=== PATIENT | female | born 1975 | race Caucasian/White ===

== ENCOUNTER 2017-06-22 17:55 | Observation (INO) | payer OTHER ==
[~2017-06-22] VITALS: Ht 175.3 cm; Wt 77.3 kg
[2017-06-22 18:40] VITALS: BP 112/74; PULSE 140; RESP 16; TEMP 98; O2SAT 98
[2017-06-22 18:41] VITALS: BP 102/70; PULSE 107; RESP 16; O2SAT 99
--- NOTE | 2017-06-22 19:42 | RADRPT ---
EXAM DATE/TIME: 06/22/2017 19:20 [facility] COMPARISON: No previous studies available for comparison. INDICATIONS : Trauma, fell from standing position and hit head on ground. RADIATION DOSE: 34.43 CTDIvol (mGy) MEDICAL HISTORY : None SURGICAL HISTORY : None. ENCOUNTER: Initial ACUITY: 1 day PAIN SCALE: 6/10 LOCATION: cranial TECHNIQUE: Multiple contiguous axial images were obtained of the head. Using automated exposure control and adj ustment of the mA and/or kV according to patient size, radiation dose was kept as low as reasonably a chievable to obtain optimal diagnostic quality images. DICOM format image data is available electro nically for review and comparison. FINDINGS: There is moderate central and cortical atrophy with dilatation of ventricular and sulcal spaces which is advanced for age. There is no parenchymal hemorrhage, acute infarction or mass lesion identified . There are no extra-axial fluid collections appreciated. The posterior fossa is unremarkable with midline fourth ventricle. The portion of the orbits and paranasal sinuses visualized are unremarkabl e. CONCLUSION: Generalized atrophy advanced for age. No evidence of acute infarct, hemorrhage, mass or edema. Jeramie Spring MD on June 22, 2017 at 19:38 Board Certified Radiologist. This report was verified electronically.
--- NOTE | 2017-06-22 19:47 | PD ---
HPI Chief Complaint: Alcohol/Drug Intoxication Time Seen by Provider: 19:20 Travel History International Travel<30 days: No Contact w/Intl Traveler<30days: No Traveled to known affect area: No History of Present Illness HPI 41 year female brought in by EMS after she had a witness fall from a standing position landing on the ground injurying her face. She denies LOC. She reports [place] She denies any drug use. She denies dizziness, chest pain, or shortness of breath prior to the fall. She reports she had too much to drink causing her to fall. She has pain in her front teeth and neck. She denies headache, facial bone pain, chest pain, shortness breath, abdominal pain. [facility] Past Medical History Tetanus Vaccination: Unknown ?: Not Past Surgical History Surgical History: Unable to Obtain Social History Alcohol Use: Yes Tobacco Use: No Substance Use: No Allergies-Medications (Allergen,Severity, Reaction): Coded Allergies: amoxicillin (Verified Allergy, Unknown, 06/22/17) azithromycin (Verified Allergy, Unknown, 06/22/17) clavulanic acid (Verified Allergy, Unknown, 06/22/17) gabapentin (Verified Allergy, Unknown, 06/22/17) Reported Meds & Prescriptions Reported Meds & Active Scripts Active Active Prescriptions or Reported Medications Unobtainable Review of Systems Except as stated in HPI: all other systems reviewed are Neg Physical Exam Narrative GENERAL: Alert female who appears intoxicated with slurred speech and smells of alcohol SKIN: Focused skin assessment warm/dry. Abrasions to the face. HEAD: No scalp hematomas. Normocephalic. Abrasions to the face without bony tenderness of the facial bones. EYES: Pupils equal and round. No scleral icterus. No injection or drainage. ENT: No nasal bleeding or discharge. Mucous membranes pink and moist. MOUTH: Mucous membranes moist, no lesions, tongue and gums appear normal. Tooth #8 and 9 chipped. NECK: Trachea midline. No JVD. cervical midline tenderness CARDIOVASCULAR: Regular rate and rhythm. No murmur appreciated. RESPIRATORY: No accessory muscle use. Clear to auscultation. Breath sounds equal bilaterally. GASTROINTESTINAL: Abdomen soft, non-tender, nondistended. Hepatic and splenic margins not palpable. MUSCULOSKELETAL: No obvious deformities. No clubbing. No cyanosis. No edema. Left lower extremity: TTP over the patella. Limited flexion due to pain. 2+ distal pulses. Normal sensation. NEUROLOGICAL: Awake and alert. No obvious cranial nerve deficits. Motor grossly within normal limits. Normal speech. PSYCHIATRIC: Appropriate mood and affect; insight and judgment normal. Data Data Last Documented VS Vital Signs Date Time Temp Pulse Resp B/P (MAP) Pulse Ox O2 Delivery O2 Flow Rate FiO2 06/22/17 18:41 107 16 102/70 (81) 99 06/22/17 18:40 98.0 Room Air Orders Orders Ct Cerv Spine W/O Contrast (06/22/17 ) Ct Brain W/O Iv Contrast(Rout) (06/22/17 ) Knee, Ltd (1 Or 2vws) (06/22/17 ) Basic Metabolic Panel (Bmp) (06/22/17 20:42) Complete Blood Count With Diff (06/22/17 20:42) Iv Access Insert/Monitor (06/22/17 20:42) Sodium Chloride 0.9% Flush (Ns Flush) (06/22/17 20:45) Ketorolac Inj (Toradol Inj) (06/22/17 20:45) ^ Knee Immobilizer (06/22/17 20:42) Alcohol (Ethanol) (06/22/17 20:42) MDM Medical Decision Making Medical Screen Exam Complete: Yes Emergency Medical Condition: Yes Interpretation(s) X-ray of the left knee: Patella fracture CT of the brain: Generalized atrophy advanced for age.No evidence of acute infarct, hemorrhage, mass or edema. CT cervical: Negative for fracture Differential Diagnosis cervical strain vs cervical spine fx vs ICH vs minor closed head injury versus knee contusion versus fracture Narrative Course 41 year old women here for evaluation after she fell from a standing position landing on the ground injuring her face [place] The fall was witnessed there was no LOC. Patient reports pain in her front teeth. On exam patient has abrasions to her face and tooth #8 and 9 are chipped. Her facial Injuries are minor. She has no bony facial tenderness. She open and closes her mouth freely. Left knee moderate swelling to keep heat to the anterior aspect. She appears intoxicated with slurred speech and smells of alcohol. CT of the brain: No acute abnormality CT of cervical spine: No fracture X-ray of the left knee: Patella fracture This will be placed in observation until she is clinically sober, pain control is achieved, and patient can ambulate Physician Communication Physician Communication 2100 spoke to executive compensation analyst orthopaedic Dr. Hernandez regarding patient's left patella fracture he recommends if the patient is able to straighten the leg to immobilize it and have her follow-up in office. [id number] Clayton who agrees to admit patient for 23 hour OBS Diagnosis Primary Impression: Chipped tooth Qualified Codes: S02.5XXA - Fracture of tooth (traumatic), initial encounter for closed fracture Additional Impressions: Alcohol intoxication Qualified Codes: F10.920 - Alcohol use, unspecified with intoxication, uncomplicated Patella fracture Qualified Codes: S82.035A - Nondisplaced transverse fracture of left patella, initial encounter for closed fracture Admitting Information Admitting Physician Requests: Observation Referrals: Jay Hernandez Jr., MD Dentist Scripts Unable to Obtain Active Prescriptions or Reported Meds Milena Laurent Jun 22, 2017 19:47
--- NOTE | 2017-06-22 19:51 | RADRPT ---
EXAM DATE/TIME: 06/22/2017 19:20 [facility] COMPARISON: No previous studies available for comparison. INDICATIONS : Trauma, fell from standing position and hit head on ground. RADIATION DOSE: 21.96 CTDIvol (mGy) MEDICAL HISTORY : None SURGICAL HISTORY : None. ENCOUNTER: Initial ACUITY: 1 day PAIN SCALE: 2/10 LOCATION: neck TECHNIQUE: Volumetric scanning of the cervical spine was performed. Multiplanar reconstructions in the sagittal, coronal and oblique axial planes were performed. Using automated exposure control and adjustment o f the mA and/or kV according to patient size, radiation dose was kept as low as reasonably achievable to obtain optimal diagnostic quality images. DICOM format image data is available electronically f or review and comparison. FINDINGS: Cranial cervical and cervical vertebral body alignment are well maintained. Vertebral bodies and posterior elements are intact. There is no evidence of listhesis or fracture. Mild to moderate degenerative disc disease is noted. There is disc space narrowing with mild spondylo sis at C4-5, C5-6 and C6-7. There are no focal soft tissue abnormalities. CONCLUSION: 1. Mild/moderate degenerative disc disease at C4-5, C5-6 and C6-7. 2. Intact cervical spine without evidence of acute fracture or traumatic listhesis. Jeramie Spring MD on June 22, 2017 at 19:47 Board Certified Radiologist. This report was verified electronically.
[2017-06-22] MEDS ORDERED: SODIUM CHLORIDE 0.9% FLUSH 10 ML FLUSH IV FLUSH PRN ×2 (20:45→21:15)
[2017-06-22] MEDS ORDERED: KETOROLAC TROMETHAMINE 30 MG/ML (IVP) VIAL IVP ONE (20:45)
[2017-06-22] MEDS: SODIUM CHLOR 0.9% 1000 ML INJ 1,000 ML IV SCH (21:11)
--- NOTE | 2017-06-22 21:13 | HHI.HP ---
[facility] Primary [facility] Physician No Primary Care Physician Admission Diagnosis Diagnoses: (1) Fall Diagnosis: Principal (2) Left patella fracture Diagnosis: Principal (3) Intractable pain Diagnosis: Principal (4) Alcohol intoxication Diagnosis: Principal Travel History International Travel<30 Days: No Contact w/Intl Traveler <30 Da: No Traveled to Known Affected Are: No History of Present Illness This is a 41-year-old female with no apparent PMH was brought to the ER by EMS after fall while intoxicated. Patient was apparently at the [employer], drinking heavily when she had sudden mechanical fall with facial trauma, sustained chip tooth. No reported LOC or seizure activity. Patient unable to provide much history as she is intoxicated. On arrival, BP 112/74, HR 140, O2 sat 98% on RA, Afebrile. Labs currently pending. CT Head with no acute findings. CT C-spine with no evidence of acute fracture or traumatic listhesis. While in ER, pt w/ complaints of knee pain, Knee X-ray w/ left patellar fracture. Dr. Hernandez consulted by ER physician, recommended immobilization and follow up in office. Asked to admit secondary to intractable pain. Review of Systems Except as stated in HPI: all other systems reviewed are Neg ROS: 14 point review of systems otherwise negative. Past Family Social History Past Medical History PMH: None Past Surgical History PAST SURGICAL HISTORY: Unknown Allergies: Coded Allergies: amoxicillin (Verified Allergy, Unknown, 06/22/17) azithromycin (Verified Allergy, Unknown, 06/22/17) clavulanic acid (Verified Allergy, Unknown, 06/22/17) gabapentin (Verified Allergy, Unknown, 06/22/17) Family History PAST FAMILY HISTORY: Reviewed. No h/o DM or CAD Social History PAST SOCIAL HISTORY: Positive for alcohol. Negative for tobacco or drugs. Physical Exam Vital Signs Vital Signs Date Time Temp Pulse Resp B/P (MAP) Pulse Ox O2 Delivery O2 Flow Rate FiO2 06/22/17 18:41 107 16 102/70 (81) 99 06/22/17 18:40 98.0 140 16 112/74 (87) 98 Room Air 06/22/17 18:40 97 16 92 Room Air Physical Exam PE: GENERAL: White female in no acute distress, intoxicated HEENT: PERRLA, EOMI. No scleral icterus or conjunctival pallor. No lid lag or facial droop. CARDIOVASCULAR: Regular rate and rhythm. No obvious murmurs to auscultation. No chest tenderness to palpation. RESPIRATORY: No obvious rhonchi or wheezing. Clear to auscultation. Breath sounds equal bilaterally. GASTROINTESTINAL: Abdomen soft, non-tender, nondistended. BS normal. MUSCULOSKELETAL: Extremities without clubbing, cyanosis, or edema. No obvious deformities. Decreased ROM of LLE due to injury. Pulses intact NEUROLOGICAL: Awake, alert and oriented x4. No focal neurologic deficits. Moving both upper and lower extremities spontaneously. Caprini VTE Risk Assessment Caprini VTE Risk Assessment: Mod/High Risk (score >= 2) VTE Pharm Contraindication: High risk for bleeding Caprini Risk Assessment Model Point Value = 1 Point Value = 2 Point Value = 3 Point Value = 5 Age 41-60 Minor surgery BMI > 25 kg/m2 Swollen legs Varicose veins or History of unexplained or recurrent spontaneous Oral contraceptives or hormone replacement Sepsis (< 1 month) Serious lung disease, including pneumonia (< 1 month) Abnormal pulmonary function Acute myocardial infarction Congestive heart failure (< 1 month) History of inflammatory bowel disease Medical patient at bed rest Age 61-74 Arthroscopic surgery Major open surgery (> 45 min) Laparoscopic surgery (> 45 min) Malignancy Confined to bed (> 72 hours) Immobilizing plaster cast Central venous access Age >= 75 History of VTE Family history of VTE Factor V Leiden Prothrombin [id number] Lupus anticoagulant Anticardiolipin antibodies Elevated serum homocysteine Heparin-induced thrombocytopenia Other congenital or acquired thrombophilia Stroke (< 1 month) Elective arthroplasty Hip, pelvis, or leg fracture Acute spinal cord injury (< 1 month) Prophylaxis Regimen Total Risk Factor Score Risk Level Prophylaxis Regimen 0-1 Low Early ambulation 2 Moderate Order ONE of the following: *Sequential Compression Device (SCD) *Heparin 5000 units SQ BID 3-4 Higher Order ONE of the following medications: *Heparin 5000 units SQ TID *Enoxaparin/Lovenox 40 mg SQ daily (WT < 150 kg, CrCl > 30 mL/min) *Enoxaparin/Lovenox 30 mg SQ daily (WT < 150 kg, CrCl > 10-29 mL/min) *Enoxaparin/Lovenox 30 mg SQ BID (WT < 150 kg, CrCl > 30 mL/min) AND/OR *Sequential Compression Device (SCD) 5 or more Highest Order ONE of the following medications: *Heparin 5000 units SQ TID (Preferred with Epidurals) *Enoxaparin/Lovenox 40 mg SQ daily (WT < 150 kg, CrCl > 30 mL/min) *Enoxaparin/Lovenox 30 mg SQ daily (WT < 150 kg, CrCl > 10-29 mL/min) *Enoxaparin/Lovenox 30 mg SQ BID (WT < 150 kg, CrCl > 30 mL/min) AND *Sequential Compression Device (SCD) Assessment and Plan Problem List: (1) Fall ICD Code: W19.XXXA - Unspecified fall, initial encounter (2) Left patella fracture ICD Code: S82.002A - Unspecified fracture of left patella, initial encounter for closed fracture (3) Intractable pain ICD Code: R52 - Pain, unspecified (4) Alcohol intoxication ICD Code: F10.929 - Alcohol use, unspecified with intoxication, unspecified Status: Acute Assessment and Plan A/P: 1. Fall: while intoxicated, no reported LOC or seizure activity. CT Head and CT C-Spine w/ no acute findings, images reviewed by me. 2. Left Patellar Fx: c/o left knee pain while in ER, X-ray w/ left patellar fracture, images reviewed by me. Dr. Hernandez consulted by ER physician, recommended immobilization and outpatient follow up in office. Will refer to Ortho for follow up at time of d/c. 3. Intractable Knee Pain: secondary to above, analgesics/antiemetics as needed. 4. Alcohol Intoxication: unclear if drinks daily, CIWA, Seizure Precautions, MVT/Thiamine/Folate. 5. DVT Prophylaxis: Pharmacologic contraindication as high risk for bleeding, Mechanical contraindication secondary to acute injury. 6. outside maintenance worker DC planning as needed. 7. Case discussed at length with ER physician. Problem Qualifiers (1) Alcohol intoxication: Qualified Codes: F10.920 - Alcohol use, unspecified with intoxication, uncomplicated Cheri Clayton MD Jun 22, 2017 21:13
[2017-06-22] MEDS ORDERED: LORazepam 2 MG TAB PO PRN (21:15)
[2017-06-22] MEDS ORDERED: HALOPERIDOL LACTATE 5 MG/ML AMP IM PRN (21:15)
[2017-06-22] MEDS ORDERED: BISACODYL 10 MG SUPP RECTAL PRN (21:15)
[2017-06-22] MEDS ORDERED: MORPHINE SULFATE 4 MG/ML INJ IV PUSH PRN (21:15)
[2017-06-22] MEDS ORDERED: LORazepam 1 MG TAB PO PRN (21:15)
[2017-06-22] MEDS ORDERED: LORazepam 2 MG/ML VIAL IV PUSH PRN ×4 (21:15)
[2017-06-22] MEDS ORDERED: MAGNESIUM HYDROXIDE SUSP 30 ML CUP PO PRN (21:15)
[2017-06-22] MEDS ORDERED: ACETAMINOPHEN 325 MG TAB PO PRN (21:15)
[2017-06-22] MEDS ORDERED: FLUMAZENIL 0.5 MG/5 ML VIAL IV PUSH PRN (21:15)
[2017-06-22] MEDS ORDERED: SENNOSIDES 8.6 MG TAB PO PRN (21:15)
[2017-06-22] MEDS ORDERED: LACTULOSE SYRUP 20 GM/30 ML CUP PO PRN (21:15)
--- NOTE | 2017-06-22 21:18 | RADRPT ---
EXAM DATE/TIME: 06/22/2017 20:29 [facility] COMPARISON: No previous studies available for comparison. INDICATIONS : Left anterior knee pain, fell MEDICAL HISTORY : None. SURGICAL HISTORY : None. ENCOUNTER: Initial ACUITY: 1 day PAIN SCORE: 6/10 LOCATION: Right Knee FINDINGS: Two view examination of the left knee demonstrates a transverse and non-distracted fracture of the pa tella. Small joint effusion is noted.. Bony mineralization is normal. CONCLUSION: Non-distracted fracture the patella with small joint effusion. Jeramie Spring MD on June 22, 2017 at 21:11 Board Certified Radiologist. This report was verified electronically.
[2017-06-22 21:42] VITALS: BP 110/68; PULSE 102; RESP 18; O2SAT 98
[2017-06-22 21:49] LABS: AUTOMATED NEUTROPHIL # 1.9 TH/MM3 (1.8-7.7); BASOPHIL # 0.1 TH/MM3 (0-0.2); BASOPHIL % 1.1 % (0.0-2.0); EOSINOPHIL # 0.1 TH/MM3 (0-0.4); HEMATOCRIT 36.9 % (35.0-46.0); LYMPH % 60.1 % (9.0-44.0); LYMPHOCYTE # 3.9 TH/MM3 (1.0-4.8); MEAN CELL VOLUME 94.8 FL (80.0-100.0); MEAN CORPUSCULAR HEMOGLOBIN 31.3 PG (27.0-34.0); NEUT % 29.8 % (16.0-70.0); PLATELET COUNT 171 TH/MM3 (150-450); RED CELL DISTRIBUTION WIDTH 18.5 % (11.6-17.2); WHITE BLOOD COUNT 6.5 TH/MM3 (4.0-11.0)
[2017-06-22 21:55] LABS: HEMO FLAGS AUTO DIFF
[2017-06-22 21:59] LABS: BICARBONATE 23.2 MEQ/L (21.0-32.0)
[2017-06-22 22:22] LABS: ATYPICAL LYMPHOCYTES 8 % (0-0); BASOPHILS 1 % (0-2); NEUTROPHIL # MANUAL DIFF 2.1 TH/MM3 (1.8-7.7); POLYS (SEG NEUTROPHILS) 33 % (16-70); WBC DIFF SAMPLE 100
[2017-06-22 22:23] LABS: SCAN/DIFF FINAL DIFF MANUAL
[2017-06-23 00:41] VITALS: BP 129/56; PULSE 101; RESP 18; TEMP 97.6; O2SAT 100
[2017-06-23 03:10] VITALS: BP 106/60; PULSE 100; RESP 16; TEMP 98; O2SAT 98
[2017-06-23] MEDS: ONDANSETRON HCL 4 MG/2 ML VIAL IVP PRN ×3 (03:25→15:45)
[2017-06-23 07:33] LABS: AUTOMATED NEUTROPHIL # 3.2 TH/MM3 (1.8-7.7); BASOPHIL # 0.1 TH/MM3 (0-0.2); BASOPHIL % 0.9 % (0.0-2.0); EOSINOPHIL # 0.1 TH/MM3 (0-0.4); EOSINOPHIL % 1.6 % (0.0-4.0); HEMATOCRIT 30.6 % (35.0-46.0); HEMO FLAGS DIFF FINAL; LYMPH % 41.5 % (9.0-44.0); LYMPHOCYTE # 3.1 TH/MM3 (1.0-4.8); MEAN CELL VOLUME 95.2 FL (80.0-100.0); MEAN CORPUSCULAR HEMOGLOBIN 31.6 PG (27.0-34.0); MEAN CORPUSCULAR HGB CONC 33.2 % (32.0-36.0); MONO % 13.7 % (0.0-8.0); NEUT % 42.3 % (16.0-70.0); PLATELET COUNT 139 TH/MM3 (150-450); RED BLOOD COUNT 3.21 MIL/MM3 (4.00-5.30); RED CELL DISTRIBUTION WIDTH 18.6 % (11.6-17.2); WHITE BLOOD COUNT 7.5 TH/MM3 (4.0-11.0)
[2017-06-23 07:41] VITALS: BP 110/63; PULSE 95; RESP 18; TEMP 98.4; O2SAT 97
[2017-06-23 08:18] LABS: ALKALINE PHOSPHATASE 106 U/L (45-117); ALT (GPT) 48 U/L (10-53); ANION GAP 10 MEQ/L (5-15); AST (GOT) 169 U/L (15-37); BICARBONATE 24.3 MEQ/L (21.0-32.0); BLOOD UREA NITROGEN 5 MG/DL (7-18); CHLORIDE 107 MEQ/L (98-107); GLOMERULAR FILTRATION RATE 169 ML/MIN (>89); POTASSIUM 4.1 MEQ/L (3.5-5.1); SODIUM (NA) 141 MEQ/L (136-145); TOTAL BILIRUBIN ADULT 0.5 MG/DL (0.2-1.0)
[2017-06-23] MEDS ORDERED: SYNT175T PO (08:24)
[2017-06-23] MEDS: FOLIC ACID 1 MG TAB PO SCH (08:25)
[2017-06-23] MEDS: THIAMINE HCL 100 MG TAB PO SCH (08:25)
[2017-06-23] MEDS: DOCUSATE SODIUM 50 MG/SENNA 8.6 MG TAB PO SCH ×2 (08:25→08:26)
[2017-06-23] MEDS: MULTIVITAMINS/MINERALS THERAPEUTIC TAB PO SCH (08:25)
[2017-06-23] MEDS: SODIUM CHLORIDE 0.9% FLUSH 10 ML FLUSH IV FLUSH SCH ×2 (08:26→20:14)
[2017-06-23] MEDS: SODIUM CHLOR 0.9% 1000 ML INJ 1,000 ML IV SCH ×2 (10:47→20:14)
[2017-06-23 11:27] VITALS: BP 128/72; PULSE 84; RESP 16; TEMP 98.6; O2SAT 100
--- NOTE | 2017-06-23 11:40 | HHI.PR ---
Subjective Remarks Patient says she is nauseous, with non-bloody vomiting. She also reports tremors indicative of alcohol withdrawal. He denies any headache. Denies any chest pain or shortness of breath. She reports left knee pain continues. Objective Vital Signs Date Time Temp Pulse Resp B/P (MAP) Pulse Ox O2 Delivery O2 Flow Rate FiO2 06/23/17 11:27 98.6 84 16 128/72 (90) 100 06/23/17 07:41 98.4 95 18 110/63 (79) 97 06/23/17 03:10 98.0 100 16 106/60 (75) 98 06/23/17 00:41 97.6 101 18 129/56 (80) 100 06/22/17 21:42 102 18 110/68 (82) 98 Room Air 06/22/17 18:41 107 16 102/70 (81) 99 06/22/17 18:40 98.0 140 16 112/74 (87) 98 Room Air 06/22/17 18:40 97 16 92 Room Air I/O 06/22/17 06/22/17 06/22/17 06/23/17 06/23/17 06/23/17 07:00 15:00 23:00 07:00 15:00 23:00 Intake Total 1363 ml Balance 1363 ml Intake Oral 480 ml IV Total 883 ml # Voids 2 Result Diagram: 06/23/17 0653 06/23/17 0653 Imaging Last Impressions Knee X-Ray 06/22/17 0000 Signed Impressions: Service Date/Time: Thursday, June 22, 2017 20:29 - CONCLUSION: Non- distracted fracture the patella with small joint effusion. Jeramie Spring MD Head CT 06/22/17 0000 Signed Impressions: Service Date/Time: Thursday, June 22, 2017 19:20 - CONCLUSION: Generalized atrophy advanced for age. No evidence of acute infarct, hemorrhage, mass or edema. Jeramie Spring MD Cervical Spine CT 06/22/17 0000 Signed Impressions: Service Date/Time: Thursday, June 22, 2017 19:20 - CONCLUSION: 1. Mild/moderate degenerative disc disease at C4-5, C5-6 and C6-7. 2. Intact cervical spine without evidence of acute fracture or traumatic listhesis. Jeramie Spring MD Objective Remarks GENERAL: Lying in bed. Appears uncomfortable. Patient has bilateral tremor. SKIN: Warm and dry. HEAD: Normocephalic. EYES: No scleral icterus. No injection or drainage. NECK: Supple, trachea midline. No JVD. CARDIOVASCULAR: Regular rate and rhythm without murmurs, gallops, or rubs. RESPIRATORY: Breath sounds equal bilaterally. No accessory muscle use. GASTROINTESTINAL: Abdomen soft, non-tender, nondistended. MUSCULOSKELETAL: No cyanosis, or edema. Left lower extremity with knee in brace. Patient has abrasion on the face without indication of infection. BACK: Nontender without obvious deformity. No CVA tenderness. A/P Assessment and Plan // Fall: while intoxicated, no reported LOC or seizure activity. CT Head and CT C-Spine w/ no acute findings, images reviewed by me. // Left Patellar Fx: c/o left knee pain while in ER, X-ray w/ left patellar fracture, images reviewed by me. Dr. Hernandez consulted by ER physician, recommended immobilization and outpatient follow up in office. =Will refer to Ortho for follow up at time of d/c. //Nausea and vomiting. This could be secondary to alcohol withdrawal. Benign abdomen. Also could be secondary to morphine. Discontinue IV morphine. Antiemetics as necessary. Continue to monitor. // Alcohol Intoxication: -Patient drinks daily. Reports history of alcohol withdrawal with seizures in the past. -Continues on CIWA protocol. We'll start on Librium. //Transaminitis. AST over 100. Negative of alcohol abuse. Order INR. //thrombocytopenia. Platelets in the 130s. No signs of bleeding. Can Joey to alcohol abuse. Continue to monitor. // DVT Prophylaxis: Pharmacologic contraindication as high risk for bleeding, Mechanical contraindication secondary to acute injury. Discharge Planning Patient is self-pay. She'll need left lower extremity brace. -Stays here for continued nausea. -narcotic pain control. -Librium taper at time of discharge. Berto Mckenzie MD Jun 23, 2017 11:40
[2017-06-23 14:14] LABS: INTERNATIONAL NORMALIZED RATIO 1.1 RATIO
[2017-06-23 15:02] VITALS: BP 139/73; PULSE 82; RESP 16; TEMP 98.3; O2SAT 100
[2017-06-23] MEDS ORDERED: NALOXONE HCL 0.4 MG/ML AMP IV PUSH PRN (16:30)
[2017-06-23] MEDS ORDERED: CHLO10CA5 PO (17:42)
[2017-06-23] MEDS ORDERED: OXYC-392 PO (17:42)
[2017-06-23] MEDS ORDERED: GNP100TA3 PO (17:44)
[2017-06-23] MEDS ORDERED: WALKER WHEELS/F1 MIS (17:44)
--- NOTE | 2017-06-23 17:45 | HHI.FF ---
Face to Face Verification Diagnosis: (1) Alcohol intoxication (2) Patella fracture (3) Left patella fracture Physical Therapy Order: Evaluate and Treat I have seen patient Daphney Pool on 06/23/17. My clinical findings support the need for the requested home health care services because: Deconditioned w/ increased weakness I certify that my clinical findings support that this patient is homebound because: Unsafe to leave home unassisted Berto Mckenzie MD Jun 23, 2017 17:45
[2017-06-23 20:09] VITALS: BP 125/58; PULSE 88; RESP 18; TEMP 98.1; O2SAT 100
[2017-06-24 00:34] VITALS: BP 125/65; PULSE 87; RESP 18; TEMP 98.1; O2SAT 97
[2017-06-24 03:34] VITALS: BP 120/61; PULSE 86; RESP 18; TEMP 98.5; O2SAT 99
[2017-06-24 08:00] VITALS: BP 132/74; PULSE 76; RESP 18; TEMP 99; O2SAT 97
[2017-06-24] MEDS: DOCUSATE SODIUM 50 MG/SENNA 8.6 MG TAB PO SCH (08:25)
[2017-06-24] MEDS: THIAMINE HCL 100 MG TAB PO SCH (08:25)
[2017-06-24] MEDS: MULTIVITAMINS/MINERALS THERAPEUTIC TAB PO SCH (08:26)
[2017-06-24] MEDS: FOLIC ACID 1 MG TAB PO SCH (08:26)
[2017-06-24] MEDS: SODIUM CHLOR 0.9% 1000 ML INJ 1,000 ML IV SCH (08:28)
--- NOTE | 2017-06-24 09:49 | HHI.PR ---
Subjective Remarks Patient says she is feeling all right. Tolerated breakfast. No nausea or vomiting this morning. Reports pain is controlled. She says her mom gets off work at 2 PM. Objective Vital Signs Date Time Temp Pulse Resp B/P (MAP) Pulse Ox O2 Delivery O2 Flow Rate FiO2 06/24/17 08:00 99.0 76 18 132/74 (93) 97 06/24/17 03:34 98.5 86 18 120/61 (80) 99 06/24/17 00:34 98.1 87 18 125/65 (85) 97 06/23/17 20:09 98.1 88 18 125/58 (80) 100 06/23/17 15:02 98.3 82 16 139/73 (95) 100 06/23/17 11:27 98.6 84 16 128/72 (90) 100 06/23/17 11:27 18 I/O 06/23/17 06/23/17 06/23/17 06/24/17 06/24/17 06/24/17 07:00 15:00 23:00 07:00 15:00 23:00 Intake Total 1363 ml Balance 1363 ml Intake Oral 480 ml IV Total 883 ml # Voids 2 3 # Bowel Movements 0 Result Diagram: 06/23/1753 06/23/17 0653 Objective Remarks GENERAL: Lying in bed. Appears uncomfortable. Number has greatly improved today. SKIN: Warm and dry. HEAD: Normocephalic. EYES: No scleral icterus. No injection or drainage. NECK: Supple, trachea midline. No JVD. CARDIOVASCULAR: Regular rate and rhythm without murmurs, gallops, or rubs. RESPIRATORY: Breath sounds equal bilaterally. No accessory muscle use. GASTROINTESTINAL: Abdomen soft, non-tender, nondistended. MUSCULOSKELETAL: No cyanosis, or edema. Left lower extremity with knee in brace. Patient has abrasion on the face without indication of infection. Unchanged. BACK: Nontender without obvious deformity. No CVA tenderness. A/P Assessment and Plan // Fall: while intoxicated, no reported LOC or seizure activity. CT Head and CT C-Spine w/ no acute findings, images reviewed by me. = Secondary to alcohol intoxication. Patient will discontinue alcohol use // Left Patellar Fx: c/o left knee pain while in ER, X-ray w/ left patellar fracture, images reviewed by me. Dr. Hernandez consulted by ER physician, recommended immobilization and outpatient follow up in office. =Will refer to Ortho for follow up at time of d/c. //Nausea and vomiting. This could be secondary to alcohol withdrawal. Benign abdomen. Also could be secondary to morphine. Discontinue IV morphine. Antiemetics as necessary. Continue to monitor. = Resolved. Was likely secondary to a hangover. // Alcohol Intoxication: -Patient drinks daily. Reports history of alcohol withdrawal with seizures in the past. -Continues on CIWA protocol. We'll start on Librium. = Mircette improved. Continue on Librium taper at discharge. //Transaminitis. AST over 100. We secondary to alcohol abuse. In her 1.1. //thrombocytopenia. Platelets in the 130s. No signs of bleeding. Secondary to alcohol abuse. Continue to monitor. // DVT Prophylaxis: Pharmacologic contraindication as high risk for bleeding, Mechanical contraindication secondary to acute injury. Discharge Planning Discharge home with home health in good condition. Activity weight bearing as tolerated. Continued use of left leg brace while ambulating. Please see discharge medications for medication reconciliation. Follow up with orthopedics and primary care. Berto Mckenzie MD Jun 24, 2017 09:49
[2017-06-24 12:00] VITALS: BP 130/79; PULSE 72; RESP 18; TEMP 98.7; O2SAT 98
== END 2017-06-24 17:52 | disposition home or self-care (01) ==
LOC: NEPD 17:55 → NEDA 21:17 → NEPGCP 23:35
PROVIDERS: ADMIT Internal Medicine; ATTEND Internal Medicine
DX: S02.5XXA Fracture of tooth (traumatic), initial encounter for closed fracture (principal); S82.032A Displaced transverse fracture of left patella, initial encounter for closed fracture; F10.920 Alcohol use, unspecified with intoxication, uncomplicated; W18.30XA Fall on same level, unspecified, initial encounter; S00.91XA Abrasion of unspecified part of head, initial encounter; M50.321 Other cervical disc degeneration at C4-C5 level; F10.239 Alcohol dependence with withdrawal, unspecified; M54.2 Cervicalgia; D69.6 Thrombocytopenia, unspecified; R74.0 Nonspecific elevation of levels of transaminase and lactic acid dehydrogenase [LDH]
CPT/HCPCS: 70450; 72125; 73560; 80048; 80053; 80307; 82948; 85007; 85025; 85027; 85610; 96361; 96374; 96375; 96376; 97163; 99285; G0378; G8987; G8988; J1885; J2270; J2405; J7030; L1830